=== PATIENT | male | born 1935 | race Caucasian/White ===

== ENCOUNTER 2022-10-17 16:42 | Inpatient (IN) | payer OTHER ==
[~2022-10-17] VITALS: Ht 172.7 cm; Wt 76.4 kg
[2022-10-17 16:43] VITALS: BP_SYST 155
[2022-10-17 17:14] LABS: BASOPHILS % (AUTO) 0.4 % (0.0-2.0); EOSINOPHILS # (AUTO) 0.1 K/uL (0.0-0.4); EOSINOPHILS % (AUTO) 1.9 % (0.0-4.0); HEMATOCRIT 36.6 % (36-54); HEMOGLOBIN 12.7 g/dL (14.0-18.0); LYMPHOCYTES # (AUTO) 2.6 K/uL (1.0-5.5); LYMPHOCYTES % (AUTO) 44.7 % (20.5-51.5); MEAN CORPUSCULAR HEMOGLOBIN 30 pg (27-31); MEAN CORPUSCULAR HGB CONC 35 % (32-36); MEAN CORPUSCULAR VOLUME 87 fL (79.0-98.0); MONOCYTES # (AUTO) 0.7 K/uL (0.0-1.0); MONOCYTES % (AUTO) 11.8 % (1.7-9.3); NEUTROPHILS # (AUTO) 2.4 K/uL (1.8-7.7); NEUTROPHILS % (AUTO) 41.2 % (40.0-70.0); PLATELET COUNT (AUTO) 128 K/uL (130-430); RED BLOOD CELL COUNT(AUTO) 4.23 MIL/uL (4.2-6.2); RED CELL DISTRIBUTION WIDTH 14.3 % (9.0-15.0); WHITE BLOOD COUNT (AUTO) 5.7 K/uL (4.8-10.8)
[2022-10-17 17:22] LABS: ANION GAP 7 (5-15); CALCIUM 8.9 mg/dL (8.4-11.0); CHLORIDE 98 mmol/L (98-107); CREATININE 1.05 mg/dL (0.55-1.30); GLUCOSE 139 mg/dL (70-99); UREA NITROGEN, BLOOD 18 mg/dL (8-21)
[2022-10-17 17:42] LABS: ALANINE AMINOTRANSFERASE 27 U/L (12-78); ALBUMIN 3.5 g/dL (3.4-4.8); ASPARTATE AMINOTRANSFERASE 25 U/L (10-37); TOTAL BILIRUBIN 0.3 mg/dL (0.0-1.0)
[2022-10-17] MEDS ORDERED: ONDANSETRON HCL 4 MG/2 ML VIAL IVP PRN (20:00)
[2022-10-17] MEDS ORDERED: LORazepam 2 MG/ML VIAL IVP PRN (20:00)
[2022-10-17] MEDS ORDERED: OXYCODONE/ACETAMINOPHEN 5-325 TABLET PO PRN (20:00)
[2022-10-17] MEDS ORDERED: ACETAMINOPHEN 325 MG TABLET PO PRN (20:00)
[2022-10-17] MEDS ORDERED: HYDROcodone/ACETAMIN 5-325 MG TAB (NORCO/ VICODIN) PO PRN (20:00)
[2022-10-17] MEDS: NORMAL SALINE 5 ML DISP.SYRIN IVF SCH (22:00)
[2022-10-17 22:30] VITALS: BP_SYST 148
[2022-10-18] VITALS: BP_SYST 148
[2022-10-18] MEDS ORDERED: MIRA50TA PO (01:35)
[2022-10-18] MEDS ORDERED: LISI10TA29 PO (01:35)
[2022-10-18] MEDS: NORMAL SALINE 5 ML DISP.SYRIN IVF SCH (06:31)
[2022-10-18 07:22] LABS: BASOPHILS % (AUTO) 0.6 % (0.0-2.0); EOSINOPHILS # (AUTO) 0.1 K/uL (0.0-0.4); EOSINOPHILS % (AUTO) 2.6 % (0.0-4.0); HEMATOCRIT 38.9 % (36-54); HEMOGLOBIN 13.3 g/dL (14.0-18.0); LYMPHOCYTES # (AUTO) 2.3 K/uL (1.0-5.5); LYMPHOCYTES % (AUTO) 43.4 % (20.5-51.5); MEAN CORPUSCULAR HEMOGLOBIN 30 pg (27-31); MEAN CORPUSCULAR HGB CONC 34 % (32-36); MEAN CORPUSCULAR VOLUME 87 fL (79.0-98.0); MONOCYTES # (AUTO) 0.7 K/uL (0.0-1.0); MONOCYTES % (AUTO) 12.9 % (1.7-9.3); NEUTROPHILS # (AUTO) 2.2 K/uL (1.8-7.7); NEUTROPHILS % (AUTO) 40.5 % (40.0-70.0); PLATELET COUNT (AUTO) 137 K/uL (130-430); RED BLOOD CELL COUNT(AUTO) 4.46 MIL/uL (4.2-6.2); RED CELL DISTRIBUTION WIDTH 13.9 % (9.0-15.0); WHITE BLOOD COUNT (AUTO) 5.3 K/uL (4.8-10.8)
[2022-10-18 08:24] VITALS: BP_SYST 154
[2022-10-18 08:32] LABS: ANION GAP 9 (5-15); CALCIUM 8.9 mg/dL (8.4-11.0); CHLORIDE 100 mmol/L (98-107); CHOLESTEROL 147 mg/dL (<200); CREATININE 0.87 mg/dL (0.55-1.30); GLUCOSE 86 mg/dL (70-99); HDL CHOLESTEROL 44 mg/dL (>45); PHOSPHORUS 4.1 mg/dL (2.7-4.5); THYROID STIMULATING HORMONE 2.92 uIu/mL (0.34-4.82); TRIGLYCERIDES 99 mg/dL (30-150); UREA NITROGEN, BLOOD 15 mg/dL (8-21)
[2022-10-18] MEDS ORDERED: HEPARIN 25,000 UNITS/D5W 250ML 250 ML IV PRN (10:00)
[2022-10-18 10:45] LABS: PROTHROMBIN TIME 10.6 SECS (9.5-12.5)
[2022-10-18] MEDS ORDERED: *LOVENOX 1MG/KG Q12H/PHARMACY XX ONE (10:45)
[2022-10-18] MEDS ORDERED: ENOXAPARIN SODIUM 80 MG/0.8 ML SYRINGE SUBCUT ONE (10:45)
[2022-10-18 12:46] VITALS: BP_SYST 132
[2022-10-18 13:00] VITALS: BP_SYST 132
[2022-10-18 13:06] VITALS: BP_SYST 166
[2022-10-18] MEDS ORDERED: ENOXAPARIN SODIUM 80 MG/0.8 ML SYRINGE SUBCUT SCH (21:00)
== END 2022-10-18 13:40 | disposition short-term general hospital (02) | DRG 281 ==
LOC: SED 16:42 → STU 19:43
PROVIDERS: ADMIT Specialist; ATTEND Specialist
DX: I21.4 Non-ST elevation (NSTEMI) myocardial infarction (principal); E87.1 Hypo-osmolality and hyponatremia; I10 Essential (primary) hypertension; N40.0 Benign prostatic hyperplasia without lower urinary tract symptoms; Z20.822 Contact with and (suspected) exposure to COVID-19; Z87.891 Personal history of nicotine dependence; Z88.6 Allergy status to analgesic agent; Z88.0 Allergy status to penicillin; Z79.899 Other long term (current) drug therapy; Z90.49 Acquired absence of other specified parts of digestive tract
CPT/HCPCS: 36415; 71045; 80048; 80053; 80061; 83735; 84100; 84443; 84484; 85025; 85610-TC; 93005; 93306; 99285; G0378; J1650